=== PATIENT | male | born 1985 | race Caucasian/White ===

== ENCOUNTER 2020-12-03 19:50 | Emergency (ER) | payer SELFPAY ==
[~2020-12-03] VITALS: Ht 182.9 cm; Wt 106.6 kg
[2020-12-03 20:02] VITALS: BP 140/90
== END 2020-12-03 21:05 | disposition left against medical advice (07) ==
LOC: ER 19:50
DX: M54.2 Cervicalgia (principal); J02.9 Acute pharyngitis, unspecified; Z53.21 Procedure and treatment not carried out due to patient leaving prior to being seen by health care provider

== ENCOUNTER 2020-12-04 08:57 | Emergency (ER) | payer SELFPAY ==
[~2020-12-04] VITALS: Ht 182.9 cm; Wt 106.6 kg
[2020-12-04 09:27] VITALS: BP 145/93
[2020-12-04] MEDS ORDERED: HYDROcodone-ACET 5/325MG TAB PO ONE (10:15)
[2020-12-04] MEDS ORDERED: cefTRIAXone SOD 1,000 MG VL IM ONE (10:15)
[2020-12-04] MEDS ORDERED: CLINDAMYCIN 600MG IV 50 ML IV ONE (10:15)
[2020-12-04] MEDS ORDERED: LORazepam 0.5 MG TAB PO ONE (11:15)
[2020-12-04 11:18] LABS: Eosinophils # (auto) 0 10 ^3/uL (0-0.8); Monocytes # (auto) 0.9 10 ^3/uL (0-1.3); White Blood Cell 12.7 10^3/uL (4.4-10.8)
[2020-12-04 11:19] LABS: Basophils # (auto) 0 10 ^3/uL (0-0.2); Basophils % (auto) 0.3 % (0.0-2.0); Hematocrit 50.5 % (41.0-53.0); Lymphocytes # (auto) 1.6 10 ^3/uL (0.4-5.4); Mean Corpuscular Hemoglobin 36.2 pg (28.0-32.0); Mean Corpuscular Hgb Conc. 35.7 g/dL (32.0-36.0); Mean Corpuscular Volume 101.2 fL (80.0-100.0); Neutrophils # (auto) 10.1 10 ^3/uL (1.6-8.6); Neutrophils % (auto) 79.7 % (37.0-80.0); Nucleated Red Blood Cells % 0.1 %; Platelet Count (auto) 214 10^3/uL (140-450); Red Blood Cells 4.99 10^6/uL (4.5-5.90); Red Cell Distribution Width 13.6 % (11.8-14.3)
[2020-12-04 11:56] LABS: Calcium 9.6 mg/dL (8.5-10.1)
[2020-12-04 12:02] LABS: Albumin 3.8 g/dL (3.4-5.0); BUN/Creatinine Ratio 12.5; Bilirubin, Total 1.2 mg/dL (0.2-1.0); Total Protein 8.8 g/dL (6.4-8.2)
[2020-12-04] MEDS ORDERED: IOPAMIDOL 76 % (ISOVUE-370) 100ML BTL IV ONE (12:20)
== END 2020-12-04 14:04 | disposition home or self-care (01) ==
LOC: ER 08:57
DX: K11.3 Abscess of salivary gland (principal)
CPT/HCPCS: 36415; 70491; 80053; 85025; 96365; 96366; 96372; 99284; J0696; J3490